=== PATIENT | female | born 1980 | race Caucasian/White ===

== ENCOUNTER 2021-07-16 14:56 | Emergency (ER) | payer MEDICAID ==
[~2021-07-16] VITALS: Ht 165.1 cm; Wt 75.0 kg
[2021-07-16] MEDS ORDERED: KETOROLAC 30MG/ML VIAL IM ONE (16:15)
[2021-07-16] MEDS ORDERED: IBUP-2029 MT (17:13)
[2021-07-16 18:27] VITALS: BP 116/55
== END 2021-07-16 18:46 | disposition home or self-care (01) ==
LOC: ER 14:56
DX: M54.2 Cervicalgia (principal); Y08.89XA Assault by other specified means, initial encounter; Y93.89 Activity, other specified; Y92.89 Other specified places as the place of occurrence of the external cause; Y99.8 Other external cause status; F41.9 Anxiety disorder, unspecified
CPT/HCPCS: 70490; 81025; 96372; 99284; J1885